=== PATIENT | male | born 1950 | race Caucasian/White ===

== ENCOUNTER → 2017-06-02 | Outpatient (CLI) | payer MEDICARE, OTHER ==
[~2017-06-02] VITALS: Ht 170.2 cm; Wt 86.2 kg
[~2017-06-02] MED LIST: CEPH500C PO; DAPA1TAB5 PO; DOCU-143 PO; GLIP5TAB13 PO; HYDR-3812 PO; HYDR-91 PO; INSU100V6 SQ; MTF500T PO; REGADENOSON 0.4 MG/5 ML SYR (LEXISCAN) IV ONE; SITA25TA PO; TEST75GE3 TP; TRM50T PO
[2017-06-02] MEDS: CATHETER FLUSH 10 ML SYR IV PRN ×2 (08:36→10:01)
[2017-06-02 09:58] VITALS: BP 175/91
--- NOTE | 2017-06-02 12:52 | Diagnostic Imaging Report ---
EXAMINATION: Upper and lower extremity pressure measurements of ankle/brachial index and pulse volume recording at the ankle. INDICATION: Claudication FINDINGS: The ankle/brachial index on the right side is 1.3, (1.3 PT, and 1.2 DP) and on the left is 1.2 (1.1 PT, and 1.3 DP). Pulse volume recording waveforms no significant abnormality. IMPRESSION: Minimal dilatation blood pressure in the right posterior tibial artery could relate to element of vascular calcifications. Dictated by: Dictated on workstation # [id number]
--- NOTE | 2017-06-02 16:41 | Diagnostic Imaging Report ---
PROCEDURE: US Bilateral lower extremity arterial. TECHNIQUE: Multiple real-time grayscale images are obtained through both lower extremity arterial systems with color Doppler imaging and color Doppler spectral analysis. INDICATION: Bilateral leg pain. FINDINGS: Scattered minimal plaque is seen on grayscale images and appears more prominent in the infrapopliteal arteries. Color Doppler demonstrates patency from the common femoral to posterior tibial and dorsalis pedis arteries bilaterally. The peak systolic velocity is in the range of 58-115 cm/s in the right lower extremity with biphasic waveforms seen throughout and in the left lower extremity ranging from 61-116 cm/s and biphasic waveforms are seen throughout. IMPRESSION: Scattered atherosclerotic plaque is seen with no ultrasound evidence of focal high-grade stenosis identified. Dictated by: Dictated on workstation # [id number]
--- NOTE | 2017-06-03 02:40 | STRESS TEST ---
DATE OF SERVICE: 06/02/2017 PHARMACOLOGICAL NUCLEAR STRESS TEST PRIMARY PHYSICIAN: Dr. Hans Simmons. REFERRING PHYSICIAN: Dr. Molina. PERFORMING PHYSICIAN: Dr. Maisha Marquez. DIAGNOSES: Chest pain, preoperative evaluation, diabetes. PROCEDURE DETAILS: The patient was brought to the stress lab after informed consent was taken. Stress test was performed according to the Lexiscan protocol. A 0.4 mg of IV Lexiscan was given. Low-grade exercise was performed. Baseline rhythm was sinus rhythm with right bundle branch block at 88 BPM. Blood pressure was 175/91 mmHg. Maximum blood pressure was 99 BPM and blood pressure was 172/85 mmHg. A 10.14 mCi of Myoview were given for rest imaging and 30.6 mCi of Myoview were given for stress imaging. TID is 1.26. Ejection fraction is 62%. There is small to intermediate-sized severe apical reversible defect noted. Normal wall motion. IMPRESSION/CONCLUSION: 1. Pharmacological stress test is negative for ischemia. 2. Apical ischemia is noted. Clinical correlation is recommended. Also to note is that there is abnormal TID. 3. Normal left ventricular ejection fraction with no wall motion abnormalities. Job ID: [id number] DocumentID: [id number] Dictated Date: 06/02/2017 11:42:26 Curtain Stitcher Date: 06/02/2017 13:05:15 Dictated By: ANTONIETA MARQUEZ MD
== END ==
LOC: CARD 08:13
PROVIDERS: ATTEND Internal Medicine Interventional Cardiology
DX: Z01.810 Encounter for preprocedural cardiovascular examination (principal); I70.203 Unspecified atherosclerosis of native arteries of extremities, bilateral legs; I10 Essential (primary) hypertension; I45.10 Unspecified right bundle-branch block; E10.9 Type 1 diabetes mellitus without complications
CPT/HCPCS: 78452; 93017; 93306; 93922; 93925

== ENCOUNTER 2017-06-06 10:59 | Day surgery (SDC) | payer MEDICARE, OTHER ==
[2017-06-06] VITALS (12 sets, daily range): BP systolic 127–187; BP diastolic 59–106
[~2017-06-06] VITALS: Ht 170.2 cm; Wt 86.2 kg
[~2017-06-06 10:59] MED LIST changes: -REGADENOSON 0.4 MG/5 ML SYR (LEXISCAN) IV ONE
--- OUTSIDE RECORDS SUMMARY | 2017-06-06 11:02 | XMS REPORT | Continuity of Care Document ---
Author Author [facility] Organization [facility] Address Unknown Phone Unavailable Allergies Active Description Code Type Severity Reaction Onset Reported/Identified Relationship to Patient Clinical Status Yes codeine [id number] Drug Allergy Unknown N/V, ITCHING 08/06/2010 Yes meperidine [id number] Drug Allergy Unknown HIVES 08/06/2010 Medications Problems Date Dx Coded Attending Type Code Diagnosis Diagnosed By 10/22/2011 Ot 250.00 DIAB PRISCILA WO COMPL, TYPE II OR UNSPEC TY 10/22/2011 Ot 604.90 ORCHITIS/EPIDIDYMIT NOS 10/22/2011 Ot V58.69 OTH MED,LT,CURRENT USE 12/23/2014 CHERRY CONNER MD Ot 250.01 12/23/2014 CHERRY CONNER MD Ot 272.4 12/23/2014 CHERRY CONENR MD Ot 401.9 12/23/2014 CHERRY CONNER MD Ot 786.50 12/23/2014 CHERRY CONNER MD Ot 794.31 12/23/2014 CHERRY CONNER MD Ot 250.01 12/23/2014 CHERRY CONNER MD Ot 272.4 12/23/2014 CHERRY CONNER MD Ot 401.9 12/23/2014 CHERRY CONNER MD Ot 786.50 12/23/2014 CHERRY CONNER MD Ot 794.31 07/24/2015 JAMES DESOUZA DO Ot E11.9 07/24/2015 JAMES DESOUZA DO Ot K42.9 07/24/2015 JAMES DESOUZA DO Ot L70.0 08/13/2015 JAMES DESOUZA DO Ot K42.9 08/13/2015 JAMES DESOUZA DO Ot Z01.812 08/13/2015 JAMES DESOUZA DO Ot Z11.2 01/28/2016 JAMES DESOUZA DO Ot E11.9 TYPE 2 DIABETES MELLITUS WITHOUT COMPLIC 01/28/2016 JAMES DESOUZA DO Ot K42.9 UMBILICAL HERNIA WITHOUT OBSTRUCTION OR 01/28/2016 JAMES DESOUZA DO Ot 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 01/28/2016 JAMES DESOUZA DO Ot Z18.89 OTHER SPECIFIED RETAINED FOREIGN BODY FR 01/27/2017 Ot 604.90 ORCHITIS/EPIDIDYMIT NOS 01/27/2017 Ot V72.83 EXAM PRE-OPERATIVE NEC 01/27/2017 Ot V74.8 SCREEN-BACTERIAL DIS NEC 01/27/2017 Ot V58.49 OTHER SPECIFIED AFTERCARE FOLLOWING SURG 01/31/2017 Ot 604.90 ORCHITIS/EPIDIDYMIT NOS 01/31/2017 Ot V72.83 EXAM PRE-OPERATIVE NEC 01/31/2017 Ot V74.8 SCREEN-BACTERIAL DIS NEC 01/31/2017 Ot V58.49 OTHER SPECIFIED AFTERCARE FOLLOWING SURG 06/01/2017 ALMA JACOB, Kristy PAPPAS Ot I73.9 PERIPHERAL VASCULAR DISEASE, UNSPECIFIED 06/01/2017 ALMA JACOB, Kristy PAPPAS Ot I73.9 PERIPHERAL VASCULAR DISEASE, UNSPECIFIED 06/02/2017 Kristy MARQUEZ MD Ot I73.9 PERIPHERAL VASCULAR DISEASE, UNSPECIFIED 06/02/2017 Kristy MARQUEZ MD Ot I73.9 PERIPHERAL VASCULAR DISEASE, UNSPECIFIED Procedures Results Encounters ACCT No. Visit Date/Time Discharge Status Pt. Type Provider Facility Loc./Unit Complaint [id number] 06/02/2017 08:13:00 2016 23:59:59 CLS Outpatient Kristy MARQUEZ MD [facility] CARD CHEST PAIN [id number] 07/24/2015 06:00:00 2015 14:10:00 DIS [facility] [id number] 07/21/2015 09:37:00 2015 23:59:59 CLS Outpatient JAMES DESOUZA DO [facility] PREOP [id number] 12/03/2014 09:30:00 2014 23:59:59 CLS Preadmit CHERRY CONNER MD [facility] CARD [id number] 12/03/2014 09:18:00 2014 23:59:59 CLS Outpatient CHERRY CONNER MD [facility] CARD [id number] 12/02/2014 08:46:00 2014 23:59:59 CLS Outpatient CHERRY CONNER MD [facility] CARD [id number] 06/06/2017 10:59:00 ACT Outpatient Kristy MARQUEZ MD [facility] CATH ABNORMAL STRESS TEST [id number] 10/23/2011 08:11:00 Document Registration [id number] 10/22/2011 05:45:00 Document Registration [id number] 10/15/2011 07:55:00 Document Registration
[2017-06-06] MEDS ORDERED: HEParin (CATH LAB) 2,000 ML IV ONE (11:11)
[2017-06-06] MEDS ORDERED: LIDOCAINE 1% INJ 50 ML (XYLOCAINE) VIAL ONE (11:11)
[2017-06-06] MEDS ORDERED: NS IV 1000 ML 1,000 ML ONE (11:11)
[2017-06-06] MEDS ORDERED: NS IV 1000 ML 1,000 ML IV SCH ×2 (11:16→14:25)
[2017-06-06 11:33] LABS: MEAN PLATELET VOLUME 9.7 FL (7.4-10.4); RED BLOOD COUNT 4.92 10^6/uL (4.35-5.85); RED CELL DISTRIBUTION WIDTH 11.9 % (10.0-14.5); WHITE BLOOD COUNT 10.1 10^3/uL (4.3-11.0)
[2017-06-06 11:44] LABS: INR 0.9 (0.8-1.4); PROTHROMBIN TIME PATIENT 12.4 SEC (12.2-14.7)
[2017-06-06 11:55] LABS: ALANINE AMINOTRANSFERASE 25 U/L (0-55); ANION GAP 9 MMOL/L (5-14); ASPARTATE AMINO TRANSFERASE 16 U/L (5-34); BILIRUBIN,TOTAL 0.3 MG/DL (0.1-1.0); BLOOD UREA NITROGEN 15 MG/DL (7-18); BUN/CREATININE RATIO 17; CALCIUM 10.3 MG/DL (8.5-10.1); CARBON DIOXIDE 30 MMOL/L (21-32); CHLORIDE 99 MMOL/L (98-107); CHOLESTEROL 198 MG/DL (< 200); CREATININE SERUM 0.87 MG/DL (0.60-1.30); DIRECT LDL 149 MG/DL (1-129); GFR ESTIMATED > 60; GLUCOSE 201 MG/DL (70-105); POTASSIUM 4.1 MMOL/L (3.6-5.0); SODIUM 138 MMOL/L (135-145); TOTAL PROTEIN 7.8 GM/DL (6.4-8.2); TRIGLYCERIDES 127 MG/DL (<150); VLDL CHOLESTEROL 25 MG/DL (5-40)
[2017-06-06] MEDS ORDERED: VERA40TA2 PO (12:08)
[2017-06-06] MEDS ORDERED: IBUP-30 PO (12:08)
[2017-06-06] MEDS ORDERED: INSU100I10 SQ (12:08)
[2017-06-06] MEDS ORDERED: GABA-486 PO (12:08)
[2017-06-06] MEDS ORDERED: LISI10TA2 PO (12:08)
[2017-06-06] MEDS ORDERED: URSO300C3 PO (12:09)
[2017-06-06] MEDS ORDERED: MIDAZOLAM 2 MG/2 ML (VERSED) VIAL ONE (13:08)
[2017-06-06] MEDS ORDERED: fentaNYL INJECTION 100 MCG/2 ML AMP ONE (13:08)
[2017-06-06] MEDS ORDERED: diphenhydrAMINE 50 MG/ML INJ (BENADRYL) ONE (13:08)
[2017-06-06] MEDS ORDERED: HEParin 1000 UNIT/ML (10ML VIAL) FOR BOLUS ONE (13:09)
[2017-06-06] MEDS ORDERED: NITROGLYCERIN DRIP 25 MG/D5W 250 ML IV ONE (13:09)
[2017-06-06] MEDS ORDERED: VERAPAMIL 5 MG/2 ML (CALAN) VIAL IV ONE (13:09)
--- NOTE | 2017-06-06 14:25 | Cardiac Procedure Note-CS/ASA ---
Pre-Procedure Note Pre-Op Procedure Note H&P Reviewed The H&P was reviewed, patient examined and no changes noted. Date H&P Reviewed: Jun 06, 2017 Time H&P Reviewed: 13:00 Conscious Sedation Pre-Proced Time Reviewed: 13:00 ASA Class: 3 Airway Mallampati Classification: ([place] appropriate class) I. II. III, IV Lungs Heart ASA score ASA 1: a normal healthy patient ASA 2: a patient with a mild systemic disease (mid diabetes, controlled hypertension, obesity ASA 3: a patient with a severe systemic disease that limits activity (angina , COPD, prior Myocardial infarction) ASA 4: a patient with an incapacitating disease that is a constant threat to life (CHF, renal failure) ASA 5: a moribund patient not expected to survive 24 hrs. (ruptured aneurysm) ASA 6: a declared brain patient whose organs are being harvested. For emergent operations, add the letter E after the classification Grade 1 Sedation Plan: Analgesia, Amnesia, Plan communicated to team members, Discussed options with patient/fam, Discussed risks with patient/fam Note The patient is an appropriate candidate to undergo the planned procedure, sedation, and anesthesia. The patient immediately re-assessed prior to indication. Kristy MARQUEZ MD Jun 06, 2017 2:24 pm
--- NOTE | 2017-06-06 14:27 | Cardiology Post Procedure Note ---
Post-Procedure Note Physician (s)/Official Court Interpreter (s) Physician Kristy MARQUEZ MD Pre-Procedure Diagnosis Pre-Procedure Diagnosis: chest pressure, abnormal nuclear stress test Post-Procedure Note Procedure Start Date: Jun 06, 2017 Procedure Start Time: 13:20 Name of Procedure: Coronary angiography, [facility] Findings/Procedure Note severe three vessel disease. normal lvef. elevated LVEDP Anesthesia Type: Conscious Sedation Estimated blood loss (mL): 20 Contrast Amount: 150 Post-Procedure Diagnosis Post-operative diagnosis: Severe three vessel CAD. Kristy MARQUEZ MD Jun 06, 2017 2:27 pm
[2017-06-06] MEDS ORDERED: PATIENT MAY USE OWN MEDS, ALL PO SCH (14:30)
--- NOTE | 2017-06-06 14:42 | Discharge Inst-Post CATH ---
Discharge Inst-CATH Post Cardiac Cath D/C Inst Follow Up/Plan Dr Meyer in one to two weeks CARDIAC CATH DISCHARGE INSTRUCTIONS *Hold Metformin for 48 hours post heart cath. ACTIVITY * Go Home directly and rest. * Limit activity of the leg (or wrist if it was used) for 7 days including aerobics, swimming, jogging, bicycling, etc. * Restrict stair-climbing for 7 days if possible, if not, climb up with your non -cath leg, then bring together on the same step. * Avoid lifting, pushing, pulling or excessive movement of the affected extremity for 7 days. * Customary sexual activity may be resumed after 2 days-use caution not to use a position that strains or causes pain to the affected extremity. * No driving for 24 hours. * NO SMOKING. * Avoid straining for bowel movements for 7 days. * Gentle walking on level ground is allowed. * Returning to work will depend on the type of procedure and the results. Your doctor will discuss this with you. CALL YOUR DOCTOR FOR ANY OF THE FOLLOWING: *If bleeding from the puncture site occurs- Apply gentle pressure to site with clean cloth and call your doctor or EMS. * If a knot or lump forms under the skin, increases in size, or causes pain. * If bruising appears to be worsening or moving further down your leg instead of disappearing. * Temperature above 101 F. CARE OF YOUR GROIN INCISION; * Bruising or purple discoloration of the skin near the puncture site is common. * You may shower only, no bathtub bathing for 5 days. Be careful to avoid slipping as your leg may feel stiff. * If a closure device was used on your femoral artery, please see the attached guide regarding care of the device and your leg. * REMOVE the dressing from your groin the next day after your procedure in the shower. CARE OF YOUR WRIST INCISION; * Bruising or purple discoloration of the skin near the puncture site is common. * You may shower. * DO NOT submerge wrist. * Remove dressing in 24 hours. Kristy MEYER MD Jun 06, 2017 2:42 pm
[2017-06-06] MEDS ORDERED: ATORVASTATIN 80 MG (LIPITOR) TABLET PO SCH (15:00)
[2017-06-06] MEDS ORDERED: amLODIPine 5 MG (NORVASC) TAB ONE (15:17)
[2017-06-06] MEDS: amLODIPine 10 MG (NORVASC) TAB PO ONE ×2 (15:21→15:56)
[2017-06-06] MEDS ORDERED: amLODIPine 5 MG (NORVASC) TAB PO NR (16:00)
--- NOTE | 2017-06-06 16:29 | CARDIAC CATHETERIZATION ---
DATE OF SERVICE: 06/06/2017 CORONARY ANGIOGRAPHY AND LEFT HEART CATHETERIZATION REFERRING PHYSICIAN: Dr. Marium Molina INDICATIONS: Recurrent chest pain/pressure, abnormal nuclear stress test. PREOPERATIVE DIAGNOSIS: Recurrent chest pressure/pain, abnormal nuclear stress test. POSTOPERATIVE DIAGNOSES: 1. Severe 3 vessel coronary artery disease. 2. Diabetes, normal systolic function. HISTORY: The patient is a 66-year-old gentleman with history of diabetes. He presented for preoperative cardiovascular risk assessment before undergoing gallbladder surgery. He was complaining of epigastric discomfort. He also had lower left-sided chest discomfort as well. Pharmacological nuclear stress study was performed which showed an elevated TID of 1.26 as well as evidence of apical ischemia. Coronary angiography was recommended. PROCEDURES PERFORMED: 1. Coronary angiography. 2. Left heart catheterization. COMPLICATIONS: None. SPECIMEN: None. ESTIMATED BLOOD LOSS: 20 cc. ANTICOAGULATION: IV heparin. ANESTHESIA: Conscious sedation. CONTRAST DOSE: 150 mL of omnipaque. FLUOROSCOPY TIME: 11.6 minute. FLUOROSCOPY DOSE: 850 milligrays. DESCRIPTION OF PROCEDURE: The patient was brought to the landscape laborer after informed consent was taken. All the risks and complications were explained in detail. The patient was draped and prepped in the usual sterile fashion. Access was gained in the right radial artery with a 6-Turkmen sheath. Left heart catheterization was performed with a Javed catheter. Right coronary artery was engaged with a JR4 diagnostic catheter. The left coronary system was engaged with a JL4 guide catheter. FINDINGS: 1. RCA: RCA has severe diffuse disease with multiple tandem lesions. It is a large vessel which supplies a significant portion of the lateral wall as well as the apex. There is a severe stenosis around 80% in the mid segment. There is another 60 to 70% stenosis in the mid and distal segment. Just before the bifurcation, there is another 70% stenosis. The PDA has 70 to 80% diffuse stenosis. 2. Left main is patent. 3. Left circumflex artery: There is no significant AV groove vessel. The obtuse marginal artery has severe stenosis in the mid segment. Stenosis severity is 80 to 90%. 4. LAD. There is no significant proximal LAD disease. There is moderate proximal to mid LAD disease. There is severe stenosis in the mid LAD at the level of second diagonal artery. Stenosis severity is 99%. Diffuse distal disease is noted. Left heart catheterization: LV pressure 142/2 mmHg. LVDP 20 mmHg. Aortic pressure 139/79 mmHg. No significant wall motion abnormalities, normal LVEF. No gradient across the aortic valve. IMPRESSION/CONCLUSION: 1. This is a diabetic patient with severe 3-vessel disease. Cardiac surgery consultation is recommended for complete revascularization. 2. Normal LV function with elevated LVEDP suggesting diastolic dysfunction. Job ID: [id number] DocumentID: [id number] Dictated Date: 06/06/2017 14:52:55 Ab Initio Etl Developer Date: 06/06/2017 16:29:18 Dictated By: ANTONIETA MARQUEZ MD
[2017-06-06] MEDS ORDERED: hydrALAZINE (APESOLINE) 20 MG/ML VIAL IV NR (17:30)
[2017-06-06] MEDS ORDERED: NITROGLYCERIN 0.4 MG SL TABS BTL 25'S SL ONE (17:30)
== END 2017-06-06 21:00 | disposition home or self-care (01) ==
LOC: CATH 10:59 → ICU 15:05 → CATH 21:00
PROVIDERS: ATTEND Internal Medicine Interventional Cardiology
DX: I25.10 Atherosclerotic heart disease of native coronary artery without angina pectoris (principal); E11.9 Type 2 diabetes mellitus without complications; Z11.2 Encounter for screening for other bacterial diseases
CPT/HCPCS: 36415; 80053; 80061; 85027; 85610; 85730; 87081; 93005; 93458

== ENCOUNTER → 2021-10-12 | Outpatient (CLI) | payer MEDICARE, OTHER ==
[~2021-10-12] MED LIST changes: +ACHD5005 PO; +GABA-486 PO; -HYDR-3812 PO; +IBUP-30 PO; +INSU100I10 SQ; +LISI10TA25 PO; +URSO300C3 PO; +VERA40TA2 PO
--- NOTE | 2021-10-12 16:38 | Diagnostic Imaging Report ---
INDICATION: Right renal calculus. EXAMINATION: KUB. FINDINGS: There is a stone overlying a lower pole calyx in the right kidney measuring approximately 1.2 cm. No calculi are seen along the path of the ureter. There is a stellate appearing calcification measuring approximately 2.5 cm overlying the right bladder. No calcifications are seen along the left kidney or ureter. IMPRESSION: 1. 1.2 cm calculus in a lower pole calyx of the right kidney. 2. Stellate appearing calcification overlying the bladder may represent a bladder stone. Dictated by: Dictated on workstation # [id number]
== END ==
LOC: RAD 12:23
PROVIDERS: ATTEND Urology
DX: N20.0 Calculus of kidney (principal)
CPT/HCPCS: 74018

== ENCOUNTER → 2021-10-26 | Outpatient (CLI) | payer MEDICARE, OTHER ==
[~2021-10-26] MED LIST changes: +METO50TA15 PO
--- NOTE | 2021-10-26 13:56 | Diagnostic Imaging Report ---
INDICATION: Right ureteral stone. TIME OF EXAM: 1:13 PM. COMPARISON: Correlation is made with the prior exam from 10/12/2021. FINDINGS: The calculus overlying the lower pole of the right kidney appears unchanged. The calcific density in the right hemipelvis is also unchanged. No calculi along the course of the ureters are seen. The bowel gas pattern is unremarkable. IMPRESSION: Stable KUB when compared to the exam from 10/12/2021. Dictated by: Dictated on workstation # [id number]
== END ==
LOC: RAD
PROVIDERS: ATTEND Urology
DX: N20.1 Calculus of ureter (principal)
CPT/HCPCS: 74018

== ENCOUNTER 2021-10-28 05:33 | Outpatient (CLI) | payer MEDICARE, OTHER ==
[~2021-10-28] VITALS: Ht 170.2 cm; Wt 81.0 kg
[~2021-10-28 05:33] MED LIST changes: -METO50TA15 PO
[2021-10-30] MEDS ORDERED: METO50TA15 PO (13:47)
== END 2021-10-30 13:52 | disposition home or self-care (01) ==
LOC: PREOP 05:33
PROVIDERS: ATTEND Urology
DX: Z01.818 Encounter for other preprocedural examination (principal)

== ENCOUNTER → 2021-10-29 | Outpatient (CLI) | payer MEDICARE, OTHER ==
[~2021-10-29] MED LIST changes: +METO50TA15 PO
--- NOTE | 2021-10-29 13:21 | Diagnostic Imaging Report ---
EXAMINATION: CT abdomen and pelvis without contrast. TECHNIQUE: Multiple contiguous axial images were obtained through the abdomen and pelvis without the use of intravenous contrast. All CT scans use one or more of the following dose optimizing techniques: automated exposure control, MA and/or KvP adjustment based on patient size and exam type or iterative reconstruction. HISTORY: URETERAL STONE COMPARISON: None available. FINDINGS: Lung bases: The lung bases are clear. Solid organs: There is diffuse hypoattenuation of the liver compatible with hepatic steatosis. The gallbladder is surgically absent. There is no biliary ductal dilation. Pancreas is normal. Spleen is normal. Adrenal glands are normal. There are multiple nonobstructing bilateral renal calculi which measure up to 0.6 cm. No hydronephrosis. Bowel: The stomach and small bowel are normal without obstruction. There is scattered colonic diverticulosis. The appendix is normal. Peritoneum: There is no intraperitoneal free fluid or free air. Multiple foci of hyperdensity seen along the gallbladder fossa as well as along the inferior margin of the liver (series 2 image 55). No suspicious lymphadenopathy. Vasculature: Normal without aneurysm. Musculoskeletal: Degenerative changes of the spine without suspicious osseous lesion or compression fracture. Pelvis: The prostate gland is enlarged. Multiple bladder stones are present including a stellate stone measuring up to 2.1 cm. IMPRESSION: 1. Bilateral nonobstructing renal calculi measuring up to 0.6 cm without hydronephrosis. 2. Multiple bladder stones including a 2.1 cm stellate stone. 3. Hepatic steatosis. 4. Multiple foci of hyperdensity seen along the inferior margin of the liver and gallbladder fossa which may represent dropped stones given history of cholecystectomy. Recommend correlation with any history of cancer that would warrant concern for metastatic implants. Dictated by: Dictated on workstation # [id number]
== END ==
LOC: RAD 10:17
PROVIDERS: ATTEND Urology
DX: N13.2 Hydronephrosis with renal and ureteral calculous obstruction (principal); N21.0 Calculus in bladder; K76.0 Fatty (change of) liver, not elsewhere classified; Z90.49 Acquired absence of other specified parts of digestive tract
CPT/HCPCS: 74176

== ENCOUNTER 2021-11-04 06:34 | Day surgery (SDC) | payer MEDICARE, OTHER ==
[~2021-11-04] VITALS: Ht 170 cm; Wt 81.0 kg
[2021-11-04] VITALS (11 sets, daily range): BP systolic 142–180; BP diastolic 79–95
[2021-11-04] MEDS ORDERED: cefTRIAXone 1 GM PRE-MIX 50 ML IV ONE ×2 (06:45→06:47)
[2021-11-04] MEDS ORDERED: LACTATED RINGERS 1,000 ML IV PRN (06:45)
--- NOTE | 2021-11-04 07:08 | Progress Note-Pre Operative ---
Pre-Operative Progress Note H&P Reviewed The H&P was reviewed, patient examined and no changes noted. Date Seen by Provider: November 04, 2021 Time Seen by Provider: 07:08 Date H&P Reviewed: November 04, 2021 Time H&P Reviewed: 07:08 Pre-Operative Diagnosis: BLADDER STONES NICOLE ZACARIAS MD November 04, 2021 07:08
--- NOTE | 2021-11-04 07:13 | Progress Note-Post Operative ---
Post-Operative Progess Note Surgeon (s)/Customer Development Manager (s) Surgeon NICOLE ZACARIAS MD Customer Development Manager: NONE Pre-Operative Diagnosis BLADDER STONES AND BPH Post-Operative Diagnosis SAME Procedure & Operative Findings Date of Procedure 11/04/21 Procedure Performed/Findings CYSTOLITHOTRIPSY Anesthesia Type GENERAL Estimated Blood Loss Estimated blood loss (mL): NEGLIGIBLE Specimens/Packing Specimens Removed BLADDER STONES FRAGMENTS Packing: NONE NICOLE ZACARIAS MD November 04, 2021 07:13
--- NOTE | 2021-11-04 07:14 | Discharge Inst-Urology ---
Discharge Inst-Urology Reconcile Patient Problems Problems Reviewed?: Yes Final Diagnosis BLADDER STONES Patient Instructions/Follow Up Plan/Assessment/Instructions Please make appointment to been seen in office in 2 weeks. DC Pike once fully awake and urine relatively clear Increase oral fluids for 48 hours and then as needed. Diet and Activity as tolerated. If questions or concerns contact your physician Or seek help at emergency department. NICOLE ZACARIAS MD November 04, 2021 07:14
[2021-11-04] MEDS ORDERED: ONDANSETRON 4 MG/2 ML (SDV) Z0FRAN ONE (07:49)
[2021-11-04] MEDS ORDERED: fentaNYL INJ 100 MCG/2 ML AMP ONE (07:49)
[2021-11-04] MEDS ORDERED: LIDOCAINE PF 2% 5 ML (XYLOCAINE) VIAL ONE (07:49)
[2021-11-04] MEDS ORDERED: proPOfol 200 MG/20 ML (DIPRIVAN) VIAL IV ONE (07:49)
[2021-11-04] MEDS ORDERED: SEVOFLURANE (ULTANE) 15 ML INHAL SOLN ONE (09:23)
--- NOTE | 2021-11-04 09:32 | Anesthesia-General Post-Op ---
General Patient Condition Mental Status/LOC: Same as Preop Cardiovascular: Satisfactory Nausea/Vomiting: Absent Respiratory: Satisfactory Pain: Controlled Complications: Absent Post Op Complications Complications None Follow Up Care/Instructions Patient Instructions None needed. Anesthesia/Patient Condition Patient Condition Patient is doing well, no complaints, stable vital signs, no apparent adverse anesthesia problems. No complications reported per nursing. FRANKLYN BUCKLEY CRNA November 04, 2021 09:32
[2021-11-04] MEDS ORDERED: fentaNYL INJ 100 MCG/2 ML AMP IVP ONE (09:45)
[2021-11-04] MEDS ORDERED: SULF1TAB38 PO (10:41)
[2021-11-04] MEDS ORDERED: PHEN-640 PO (10:41)
--- NOTE | 2021-11-04 13:57 | OPERATIVE REPORT ---
DATE OF SERVICE: 11/04/2021 PREOPERATIVE DIAGNOSES: BPH and bladder stones. POSTOPERATIVE DIAGNOSES: BPH and bladder stones. OPERATION PERFORMED: Cystoscopy, lithotripsy. SURGEON: Malcolm Zacarias MD ANESTHESIA: General. COMPLICATIONS: None. DESCRIPTION OF PROCEDURE: Under satisfactory general anesthesia, the patient in lithotomy position, genitalia were prepped and draped in the usual sterile fashion. A cystoscope was introduced under vision. The prostate showed some enlargement of the lateral lobe, but a significant median bar. Entering the bladder revealed multiple stellate kind of stones in the bladder. I went ahead and broke them up completely with the lithoclast, irrigated all the fragments out. Cystoscopy confirmed no more fragment that I could see in the bladder or elsewhere. I elected to leave a catheter till the patient wakes up, so I removed the cystoscope, inserted an 18-[place] Pike catheter in the bladder. We will leave it indwelling. Once he is awake and the urine is essentially clear, we will take it out to avoid any urinary retention of the patient later on in recovery. The patient tolerated the procedure and anesthesia well and was sent to recovery room in stable condition. PLAN: We will see him back in the office in two weeks and we will work him up for BPH to make sure he does not have recurrent bladder stones again. This plan was fully explained to the . As regards to the kidney stone, we will observe it for the time being the patient wants to have an ESWL and we will discuss that in the future. Job ID: [id number] DocumentID: [id number] Dictated Date: 11/04/2021 09:09:41 Electronic Wirer Date: 11/04/2021 13:56:47 Dictated By: MALCOLM ZACARIAS MD
== END 2021-11-04 11:25 ==
LOC: SDC 06:34
PROVIDERS: ATTEND Urology
DX: N21.0 Calculus in bladder (principal); N40.0 Benign prostatic hyperplasia without lower urinary tract symptoms; K21.9 Gastro-esophageal reflux disease without esophagitis; E11.9 Type 2 diabetes mellitus without complications; Z79.899 Other long term (current) drug therapy
CPT/HCPCS: 82947; 87081

== ENCOUNTER → 2022-06-01 | Outpatient (CLI) | payer MEDICARE, OTHER ==
[~2022-06-01] MED LIST changes: +CATHETER FLUSH 10 ML SYR IVP PRN; +PHEN-640 PO; +REGADENOSON 0.4 MG/5 ML SYR (LEXISCAN) IV NR; +REGADENOSON 0.4 MG/5 ML SYR (LEXISCAN) IV ONE; +SULF1TAB38 PO
[2022-06-01 09:24] VITALS: BP 190/98
--- NOTE | 2022-06-02 04:21 | STRESS TEST ---
DATE OF SERVICE: 06/01/2022 ORDERING PHYSICIAN: Caryn Enamorado APRN. PRIMARY PHYSICIAN: Dr. Cota. CLINICAL DIAGNOSIS: Chest discomfort. Baseline images were carried out after injection of 10.6 mCi of technetium-99m Tetrofosmin. This was followed by 0.4 mg regadenoson and 30.9 mCi of technetium-99m Tetrofosmin for stress imaging. The electrocardiogram showed sinus rhythm at baseline. There was right bundle branch block. The electrocardiogram did not change significantly with the regadenoson infusion. The patient had some stomach discomfort following regadenoson infusion, which resolved in a few minutes. Review of images at rest and following regadenoson infusion indicate a small lateral wall perfusion defect, which appears transient. Gated images showed normal global systolic function and normal regional wall motion. Left ventricular ejection fraction is calculated to be 65%. CONCLUSION: 1. Study is suggestive of a small to moderate amount of lateral wall ischemia. 2. Normal regional wall motion. 3. Normal global left ventricular systolic function with a calculated ejection fraction 65%. Job ID: [id number] DocumentID: [id number] Dictated Date: 06/01/2022 17:43:46 Bundler Date: 06/02/2022 04:19:00 Dictated By: JORGE STUART MD; IGNACIO; FACP; FACC;
== END ==
LOC: CARD 07:12
PROVIDERS: ATTEND Nurse Practitioner Family
DX: R07.89 Other chest pain (principal)
CPT/HCPCS: 78452; 93017; A9502

== ENCOUNTER 2022-06-08 13:03 | Day surgery (SDC) | payer MEDICARE, OTHER ==
[~2022-06-08] VITALS: Ht 170 cm; Wt 86.0 kg
[~2022-06-08 13:03] MED LIST changes: -CATHETER FLUSH 10 ML SYR IVP PRN; -REGADENOSON 0.4 MG/5 ML SYR (LEXISCAN) IV NR; -REGADENOSON 0.4 MG/5 ML SYR (LEXISCAN) IV ONE
[2022-06-08] MEDS ORDERED: HEParin (CATH LAB) 2,000 ML IV ONE (13:27)
[2022-06-08] MEDS ORDERED: NS IV 1000 ML 1,000 ML ONE (13:27)
[2022-06-08] MEDS ORDERED: LIDOCAINE 1% INJ 30 ML (XYLOCAINE) VIAL ONE (13:27)
[2022-06-08] MEDS ORDERED: NS IV 1000 ML 1,000 ML IV SCH ×2 (13:30→15:30)
[2022-06-08 13:36] VITALS: BP 184/100
[2022-06-08 13:48] LABS: HEMATOCRIT 47 % (40-54); HEMOGLOBIN 16.2 g/dL (13.3-17.7); MEAN CORPUSCULAR HEMOGLOBIN 31 pg (25-34); MEAN CORPUSCULAR HGB CONC 34 g/dL (32-36); MEAN CORPUSCULAR VOLUME 89 fL (80-99); MEAN PLATELET VOLUME 10.3 fL (9.0-12.2); PLATELET COUNT 232 10^3/uL (130-400); WHITE BLOOD COUNT 8.3 10^3/uL (4.3-11.0)
[2022-06-08] MEDS ORDERED: METF-399 PO (13:50)
[2022-06-08] MEDS ORDERED: LOSA25TA41 PO (13:50)
[2022-06-08] MEDS ORDERED: INSU100I14 SQ (13:50)
[2022-06-08] MEDS ORDERED: CLOP75TA28 PO (13:50)
[2022-06-08] MEDS ORDERED: GLIM4TAB5 PO (13:50)
[2022-06-08] MEDS ORDERED: METO50TA7 PO (13:50)
[2022-06-08 14:04] LABS: INR 0.9 (0.8-1.4); PROTHROMBIN TIME PATIENT 12.6 SEC (12.2-14.7)
[2022-06-08 14:07] LABS: ALBUMIN 4.4 GM/DL (3.2-4.5); BILIRUBIN,TOTAL 0.7 MG/DL (0.1-1.0); CALCIUM 9.5 MG/DL (8.5-10.1); CREATININE SERUM 0.88 MG/DL (0.60-1.30); POTASSIUM 3.8 MMOL/L (3.6-5.0); TOTAL PROTEIN 7.7 GM/DL (6.4-8.2)
[2022-06-08] MEDS ORDERED: FLUT9.9S NS (14:12)
[2022-06-08] MEDS ORDERED: GABA-486 PO (14:12)
[2022-06-08] MEDS ORDERED: IBUP-2473 PO (14:12)
[2022-06-08] MEDS ORDERED: OMEP1CAP9 PO (14:12)
[2022-06-08] MEDS ORDERED: fentaNYL INJ 100 MCG/2 ML AMP ONE (14:14)
[2022-06-08] MEDS ORDERED: MIDAZOLAM 5 MG/5 ML (VERSED) VIAL ONE (14:14)
--- NOTE | 2022-06-08 15:19 | Cardiac Procedure Note-CS/ASA ---
Pre-Procedure Note Pre-Op Procedure Note Date of Available H&P: Jun 07, 2022 Date H&P Reviewed: Jun 08, 2022 Time H&P Reviewed: 14:30 History & Physical: H&P Reviewed, No changes noted Conscious Sedation Pre-Proced ASA Score 3 For ASA 3 and 4: Consider anesthesia and medical clearance. Also, for patients with a history of failed moderate sedation consider anesthesia. Airway Lungs Heart ASA score ASA 1: a normal healthy patient ASA 2: a patient with a mild systemic disease (mid diabetes, controlled hypertension, obesity ASA 3: a patient with a severe systemic disease that limits activity (angina, COPD, prior Myocardial infarction) ASA 4: a patient with an incapacitating disease that is a constant threat to life (CHF, renal failure) ASA 5: a moribund patient not expected to survive 24 hrs. (ruptured aneurysm) ASA 6: a declared brain- patient whose organs are being harvested. For emergent operations, add the letter E after the classification Mallampati Classification Grade 2 Sedation Plan Analgesia, Amnesia, Plan communicated to team members The patient is an appropriate candidate to undergo the planned procedure, sedation, and anesthesia. The patient immediately re-assessed prior to indication. JORGE STUART MD FACP FAC CCDS Jun 08, 2022 15:19
[2022-06-08] MEDS ORDERED: ACET-3075 PO (15:25)
--- NOTE | 2022-06-08 15:27 | Discharge Inst-Cardiology ---
Discharge Inst-Cardiac Discharge Medications New Medications: Acetaminophen/Diphenhydramine (Tylenol Pm Ex-Strength Caplet) 500 Mg-25 Mg Tablet 1 EACH PO HS PRN for PAIN-MODERATE (5-7), #60 TAB 3 Refills Continued Medications: Fluticasone Propionate (Flonase Allergy Relief) 50 Mcg/Actuation [place].susp 1 SPRAY NS DAILY PRN for CONGESTION, EACH Gabapentin (Gabapentin) 100 Mg Capsule 300 MG PO HS, CAP TAKES 3 (100MG) CAPSULES Glimepiride (Glimepiride) 4 Mg Tablet 4 MG PO BID, TAB Insulin Aspart (Novolog Flexpen) 100 Unit/Ml (3 Ml) Solution 5 UNITS SQ BIDAC, EA WITH LARGEST MEALS USUALLY BREAKFAST AND DINNER Losartan Potassium (Losartan Potassium) 25 Mg Tablet 25 MG PO DAILY, TAB Metoprolol Succinate (Metoprolol Succinate) 50 Mg Tab.er.24h 50 MG PO DAILY, TAB Omeprazole/Sodium Bicarbonate (Zegerid 20 mg Capsule) 20 Mg-1.1 Gram Capsule 1 EACH PO DAILY PRN for HEARTBURN, CAP Discontinued Medications: Ibuprofen (Ibuprofen) 200 Mg Tablet 600 MG PO HS, TAB TAKES 3 (200MG) TABLETS Metformin HCl (Metformin HCl) 1,000 Mg Tablet 1000 MG PO BID, TAB Patient Instructions Patient Instructions: Hold Metformin until the morning of 06/11/22, then resume previous home dose Use Ibuprofen sparingly Try Tylenol PM 1-2 tabs once daily at night, prn, instead of ibuprofen JORGE STUART [facility]S Jun 08, 2022 15:27
[2022-06-08] MEDS ORDERED: meTOprolol 5 MG/5 ML (LOPRESSOR) VIAL ONE (15:28)
--- NOTE | 2022-06-08 15:28 | Discharge Inst-Post CATH ---
Discharge Inst-CATH/EP Post Cardiac Cath/EP D/C Inst Follow Up/Plan F/u with Dr Jiménez in one month ACTIVITY * Go Home directly and rest. * Limit activity of the leg (or wrist if it was used) for 7 days including aerobics, swimming, jogging, bicycling, etc. * Restrict stair-climbing for 7 days if possible, if not, climb up with your non-cath leg, then bring together on the same step. * Avoid lifting, pushing, pulling or excessive movement of the affected extremity for 7 days. * Customary sexual activity may be resumed after 2 days-use caution not to use a position that strains or causes pain to the affected extremity. * No driving for 24 hours. * NO SMOKING. * Avoid straining for bowel movements for 7 days. * Gentle walking on level ground is allowed. * Returning to work will depend on the type of procedure and the results. Your doctor will discuss this with you. CALL YOUR DOCTOR FOR ANY OF THE FOLLOWING: *If bleeding from the puncture site occurs- Apply gentle pressure to site with clean cloth and call your doctor or EMS. * If a knot or lump forms under the skin, increases in size, or causes pain. * If bruising appears to be worsening or moving further down your leg instead of disappearing. * Temperature above 101 F. CARE OF YOUR GROIN INCISION; * Bruising or purple discoloration of the skin near the puncture site is common. * You may shower only, no bathtub bathing for 5 days. Be careful to avoid slipping as your leg may feel stiff. * If a closure device was used on your femoral artery, please see the attached guide regarding care of the device and your leg. * Leave dressing on FOR 24 hours. CARE OF YOUR WRIST INCISION; * Bruising or purple discoloration of the skin near the puncture site is common. * You may shower. * DO NOT submerge wrist. * Leave dressing on FOR 24 hours. JORGE JIMÉNEZ MD [facility]S Jun 08, 2022 15:28
[2022-06-08] MEDS ORDERED: PATIENT MAY USE OWN MEDS, ALL PO SCH (15:30)
--- NOTE | 2022-06-08 22:05 | CARDIAC CATHETERIZATION ---
DATE OF SERVICE: 06/08/2022 CARDIAC CATHETERIZATION REPORT INDICATIONS: The patient is a 71-year-old gentleman who is known to have coronary artery disease and he has been experiencing chest discomfort. A myocardial perfusion imaging study indicated a small to moderate amount of lateral ischemia. He is known to have coronary artery bypass surgery, including left internal mammary artery graft to left anterior descending, saphenous vein graft to left circumflex and saphenous vein graft to posterior descending branch of the right coronary. Cardiac catheterization was recommended for further evaluation. Informed consent was obtained. DESCRIPTION OF PROCEDURE: The patient was brought to the cardiac catheterization laboratory in the fasting state. Right groin was prepared and draped in the usual sterile fashion. A 1% lidocaine was used for local anesthesia. A modified Seldinger technique was used to advance a 5[place] sheath in the right femoral artery, A [place] JL4 catheter for left coronary angiography and [place] JR4 catheter for right coronary angiography. A 5[place] pigtail catheter used for left heart catheterization and left ventriculography. We used a [place] JR4 catheter to carry out angiography of the saphenous vein grafts and 5[place] TOSIN catheter to carry out angiography of the left internal mammary artery graft to left anterior descending. We used the pigtail catheter to carry out aortic arch angiography. Aortic arch angiography was performed to make sure that no graft had been missed. Angiography of the right femoral artery was carried out through the sheath after removal of the diagnostic catheters. Mynx was used to achieve hemostasis. He tolerated the procedure well. HEMODYNAMICS: Left ventricular end diastolic pressure was 20 mmHg. There is no significant pressure gradient on pullback across the aortic valve. CORONARY ANGIOGRAPHY: Left main coronary artery does not exhibit significant disease. Left anterior descending artery exhibits severe disease following the origin of the first diagonal branch, which has moderate to moderately severe diffuse disease. The left anterior descending artery appears occluded in its distal portion. Left circumflex artery is occluded in its mid portion. The right coronary artery is dominant. It has multiple stenoses of up to 90% in the mid portion and is occluded in its distal portion. Aortocoronary graft angiography: The more cephalic graft is known to be an aortocoronary graft to the left circumflex system. It is occluded at its ostium. The more caudal graft is an aortocoronary graft to the posterior descending branch of the right coronary artery. It is widely patent and does not exhibit significant disease and exhibits a good distal runoff. Left internal mammary artery graft angiography: Left internal mammary artery graft to left anterior descending artery is widely patent and does not exhibit significant disease. It is inserted into the distal left anterior descending artery and exhibits good distal runoff. Left ventricular coronary angiography: Left ventricular coronary angiography was carried out in the right anterior oblique projection. Global left ventricular systolic function is well preserved and left ventricular ejection fraction 50%-55%. Aortic arch angiography: Aortic arch angiography showed the ascending aorta and the aortic arch. Only one aortocoronary graft is identified, which has been described above. The other aortocoronary graft is occluded on this angiogram. The aortic arch exhibits the origins of the neck vessels and their wall appear intact and without significant disease. CONCLUSION: 1. Coronary artery disease primarily consisting of severe mid vessel disease and distal occlusion of the left anterior descending, moderate disease of the first diagonal, mid vessel occlusion of the left circumflex, and distal vessel occlusion of the right coronary. 2. Patent left internal mammary artery graft to left anterior descending. 3. Occluded aortocoronary graft to the left circumflex. 4. Patent aortocoronary graft to the posterior descending branch of the right coronary. 5. Elevated left ventricular end diastolic pressure (20 mmHg). 6. Well-preserved global left systolic function with an ejection fraction of 50-55%. RECOMMENDATIONS: Based on results of the study, it appears appropriate to continue conservative approach. Risk factor modification has been reviewed. Current regimen has been continued. Close outpatient followup was advised. Job ID: [id number] DocumentID: [id number] Dictated Date: 06/08/2022 15:35:16 Network Intelligence Analyst Date: 06/08/2022 22:03:00 Dictated By: JORGE STUART MD; IGNACIO; FACP; FACC;
== END 2022-06-08 19:45 | disposition home or self-care (01) ==
LOC: CATH 13:03 → CSD 16:00 → CATH 19:45
PROVIDERS: ATTEND Internal Medicine Cardiovascular Disease
DX: I25.810 Atherosclerosis of coronary artery bypass graft(s) without angina pectoris (principal); I10 Essential (primary) hypertension; E11.9 Type 2 diabetes mellitus without complications; E78.5 Hyperlipidemia, unspecified; I77.9 Disorder of arteries and arterioles, unspecified; Z79.82 Long term (current) use of aspirin; Z79.4 Long term (current) use of insulin; Z79.02 Long term (current) use of antithrombotics/antiplatelets; Z79.899 Other long term (current) drug therapy
CPT/HCPCS: 36221; 80053; 80061; 85027; 85610; 85730; 87081; 93005; 93458; C1760; C1894; 36415